=== PATIENT | female | born 2000 | race Caucasian/White ===

== ENCOUNTER 2021-04-02 13:25 | Inpatient (IN) ==
[2021-04-02 14:25] LABS: Appearance Urine Clear (Clear); Bilirubin Urine Negative (Negative); Blood Urine Negative (Negative); Color Urine Yellow; Glucose Urine UA Negative (Negative); Ketones Urine 1+ (Negative); Leukocyte Esterase Urine Negative (Negative); Nitrite Urine Negative (Negative); Protein Urine Negative (Negative); Specific Gravity Urine 1.023 (1.000-1.030); Urobilinogen Urine Negative (Negative); pH Urine 5.5 (4.5-7.5)
[2021-04-02 14:29] LABS: Amphetamines+Metham, Urine Neg (Neg); Barbiturates, Urine Neg (Neg); Benzodiazepine, Urine Neg (Neg); Cocaine, Urine Neg (Neg); MDMA (Ecstacy), Urine Pos (Neg); Methadone, Urine Neg (Neg); Opiate, Urine Neg (Neg); Phencyclidine, Urine Neg (Neg)
[2021-04-02 14:35] LABS: Basophils # (auto) 0.02 K/uL (0-0.2); Basophils % (auto) 0.3 %; Eosinophils # (auto) 0.16 K/uL (0-0.5); Eosinophils % (auto) 2.3 %; Hemoglobin 15.2 g/dL (12.0-16.0); Immature Granulocytes # (auto) 0.01 K/uL (0.00-0.02); Immature Granulocytes % (auto) 0.1 %; Lymphocytes # (auto) 1.43 K/uL (1.2-3.4); Lymphocytes % (auto) 20.1 %; Mean Corpuscular Hemoglobin 31.4 pg (25-34); Mean Corpuscular Hgb Conc 35.3 g/dL (32-36); Mean Corpuscular Volume 88.8 fL (80-100); Mean Platelet Volume 8.2 fL (7.4-10.4); Monocytes % (auto) 8.4 %; Neutrophils # (auto) 4.89 K/uL (1.4-6.5); Neutrophils % (auto) 68.8 %; Platelet Count 306 K/uL (130-400); RDW Coefficient of Variation 11.9 % (11.5-14.5); RDW Standard Deviation 38.5 fL (36.4-46.3); Red Blood Count 4.84 M/uL (4.2-5.4); White Blood Count 7.11 K/uL (4.8-10.8)
[2021-04-02 14:54] LABS: Acetaminophen < 2 ug/ml (10-30); BUN Creatinine Ratio 16.2 (10-20); Calcium 9.2 mg/dl (8.5-10.1); Creatinine Clr Calc Pharmacy 158.2 ml/min; Est GFR (African American) 147.4 ml/min; Est GFR (Non-African American) 127.2 ml/min; Potassium 3.9 mmol/L (3.5-5.1); Salicylate < 1.7 mg/dl (2.8-20)
[2021-04-02 15:04] LABS: Albumin Globulin Ratio 1.1 (0.9-2); Bilirubin,Total 0.7 mg/dl (0.2-1); Globulin 3.5 gm/dl (2.5-4.0); Thyroid Stimulating Hormone 0.602 uIu/ml (0.300-4.500); Total Protein 7.5 gm/dl (6.4-8.2)
[2021-04-02 15:29] LABS: Pregnancy Test, Serum Negative (Negative)
--- NOTE | 2021-04-02 16:39 | Emergency Department Note ---
Impression & Plan Mood disorder ED Provider Note NAME: PAPO SALAZAR AGE: 21 SEX: F : 2000 ARRIVES VIA: Walk-In INFORMANT: Patient, mother ED PROVIDER(S): Radames Boucher MD CHIEF COMPLAINT: Suicidal thoughts HPI: This is a 21 rolled female who presents emergency department complaining of suicidal thoughts. The patient has a plan to go to the grocery store and buy razor blades and cut herself. The patient reports she has previously tried to commit suicide. She has not taking anything to help her with her thoughts. She denies anything making the thoughts better or worse. She told her mother about her concerns and her mother brought her to the emergency department. ROS: See above HPI for pertinent positives & negatives. A total of 10 systems reviewed and were otherwise negative. PAST MEDICAL HISTORY: See Below PAST SURGICAL HISTORY: See Below FAMILY HISTORY: See Below SOCIAL HISTORY: See Below HOME MEDICATIONS: See Below ALLERGIES: See Below VITALS: See Below PHYSICAL EXAMINATION: VITAL SIGNS - Vital signs and nursing notes were reviewed. GENERAL - 21-year-old female appearing stated age who is in no acute distress. Communicates well with provider and answers questions appropriately. SKIN - Without rashes. HEAD - NC/AT. EYES - PERRL with EOMI bilaterally. Sclera anicteric. Palpebral conjunctiva pink and moist with no injection noted. EARS - No deformities of external structures noted on gross examination bilaterally. NOSE - Midline and without cyanosis. No epistaxis or purulent drainage noted. Septum midline without deviation or septal hematoma noted. MOUTH/OROPHARYNX - Without perioral cyanosis. Buccal mucosa pink and moist and without leukoplakia. Tongue midline with equal elevation of palate bilaterally. No tonsillar hypertrophy, erythema, or exudates noted. NECK - Neck with FROM. Supple to palpation. No nuchal rigidity. LUNGS - Chest wall symmetric without accessory muscle use, intercostals retractions, or central cyanosis. Normal vesicular breath sounds CTA B/L. No wheezes, rales, or rhonchi appreciated. CARDIAC - RRR with S1/S2. No murmur, rubs, or gallops appreciated. ABDOMEN - Abdominal contour without pulsations or visible masses. BS normoactive all four quadrants. No tenderness, palpable masses, hepatosplenomegaly, or ascites noted. EXTREMITIES - No clubbing or peripheral cyanosis. No pretibial edema present. +3/5 radial, posterior tibial, and dorsalis pedis pulses palpated throughout. +5/5 strength noted in UE/LE bilaterally. NEUROLOGIC - Cranial nerves II through XII grossly intact. Sensory intact to light touch throughout. Patellar reflexes +2/4. PSYCH - A&Ox3 and cooperates fully with examiner. Pt is very pleasant and interacts well with examiner. MEDICAL DECISION MAKING: Patient was seen and evaluated as above in room A6. Review was performed of nursing notes and vital signs. I did review pertinent previous visits and patient history. After obtaining a thorough history and physical examination the above work up was performed. This is a 21-year-old female who presents emergency department with a plan to kill herself. I did discuss the case with psychiatric case management. Patient was medically cleared by me. The patient is not does not have an elevation in her white blood cell count. She was independently evaluated by psychiatric case management as well as 3 S. and was subsequently admitted. The patient was evaluated during a period of high volume and high acuity during the global COVID-19 pandemic, and that diagnosis was suspected/considered upon their initial presentation. Their evaluation, treatment and testing was consistent with current guidelines for patients who present with complaints or symptoms that may be related to COVID-19. Patient was seen while provider was wearing PPE. Triage Nursing notes reviewed. Prior medical records reviewed Vital Signs: reviewed and remarkable for no significant abnormalities Differential diagnosis: Mood disorder, infection, hypoglycemia, electrolyte abnormalities, cardiac sources, intracerebral event, toxicologic, trauma, neurologic, as well as other pathologies. ER treatment provided: See below Laboratory studies: As stated above and show below. Consultation(s): Psych case management Past Med/Surg History Medical History (Updated 04/02/21 @ 19:51 by Radames Boucher MD) Anxiety Depression Family History Other No pertinent family history in first degree relatives Social History Smoking Status: Never smoker Tobacco Type: E-cigarettes / Vaping Feels Safe at Home: Yes Allergies Allergies Allergy/AdvReac Type Severity Reaction Status Date / Time sulfamethoxazole Allergy Unknown Unverified 06/25/19 11:49 [From Bactrim] trimethoprim [From Bactrim] Allergy Unknown Unverified 06/25/19 11:49 Home Meds Home Medications Medication Instructions Recorded Confirmed bupropion HCl [Wellbutrin SR] 200 mg PO QAM 06/25/19 04/02/21 escitalopram oxalate [Lexapro] 15 mg PO QAM 06/25/19 04/02/21 Results & Data (ED) Vital Signs Vital Signs - 24 hr 04/02/21 13:53 04/02/21 17:15 Temperature 36.7 C Temperature Source Oral Pulse Rate 86 Pulse Rate [Finger] 80 Respiratory Rate 18 16 Respiratory Effort / Characteristics Non-Labored Spontaneous Respiratory Depth Normal Respiratory Pattern Regular Blood Pressure 133/90 Blood Pressure [Right Arm] 132/79 Blood Pressure Mean 104 Blood Pressure Mean [Right Arm] 96 Blood Pressure Position [Right Arm] Sitting Pulse Oximetry 98 96 Oxygen Delivery Method Room Air Room Air Sepsis Recent Fever Within 48 Hours No Sepsis New/Unexplained Change in Mental Status No Sepsis Action Taken by Nursing No Action Required Laboratory Data Result diagrams: 04/02/21 14:12 04/02/21 14:12 Lab Results 04/02/21 04/02/21 04/02/21 Range/Units 14:00 14:00 14:12 WBC (4.8-10.8) K/uL RBC (4.2-5.4) M/uL Hgb (12.0-16.0) g/dL Hct (37-47) % MCV (80-100) fL MCH (25-34) pg MCHC (32-36) g/dL RDW Std Deviation (36.4-46.3) fL RDW Coeff of Anna (11.5-14.5) % Plt Count (130-400) K/uL MPV (7.4-10.4) fL Immature Gran % (Auto) % Neut % (Auto) % Lymph % (Auto) % [place] % (Auto) % Eos % (Auto) % Baso % (Auto) % Neut # (Auto) (1.4-6.5) K/uL Lymph # (Auto) (1.2-3.4) K/uL [place] # (Auto) (0.11-0.59) K/uL Eos # (Auto) (0-0.5) K/uL Baso # (Auto) (0-0.2) K/uL Immature Gran # (Auto) (0.00-0.02) K/uL Sodium (136-145) mmol/L Potassium (3.5-5.1) mmol/L Chloride (98-107) mmol/L Carbon Dioxide (21-32) mmol/L Anion Gap (3-11) BUN (7-18) mg/dl Creatinine (0.6-1.2) mg/dl Est Cr Clr Drug Dosing ml/min Est GFR ( Amer) ml/min Est GFR (Non-Af Amer) ml/min BUN/Creatinine Ratio (10-20) Glucose (70-99) mg/dl Calcium (8.5-10.1) mg/dl Total Bilirubin (0.2-1) mg/dl AST (15-37) U/L ALT (12-78) U/L Alkaline Phosphatase (45-117) U/L Total Protein (6.4-8.2) gm/dl Albumin (3.4-5.0) gm/dl Globulin (2.5-4.0) gm/dl Albumin/Globulin Ratio (0.9-2) TSH (0.300-4.500) uIu/ml HCG, Qual Negative (Negative) Urine Color Yellow Urine Appearance Clear (Clear) Urine pH 5.5 (4.5-7.5) Ur Specific [place] 1.023 (1.000-1.030) Urine Protein Negative (Negative) Urine Glucose (UA) Negative (Negative) Urine Ketones 1+ H (Negative) Urine Blood Negative (Negative) Urine Nitrite Negative (Negative) Urine Bilirubin Negative (Negative) Urine Urobilinogen Negative (Negative) Ur Leukocyte Esterase Negative (Negative) Salicylates (2.8-20) mg/dl Urine Opiates Screen Neg (Neg) Ur Methadone, Qual Neg (Neg) Acetaminophen (10-30) ug/ml Urine Barbiturates Neg (Neg) Ur Phencyclidine (PCP) Neg (Neg) U Amphetamin/Meth Scrn Neg (Neg) MDMA (Ecstasy) Screen Pos H (Neg) U Benzodiazepines Scrn Neg (Neg) Ur Cocaine Metabolite Neg (Neg) U Marijuana (THC) Screen Pos H (Neg) Ethyl Alcohol mg/dL (0-3) mg/dl COVID-19 Eval Order SARS-CoV-2 (PCR) (Negative) 04/02/21 04/02/21 04/02/21 Range/Units 14:12 14:12 14:12 WBC 7.11 (4.8-10.8) K/uL RBC 4.84 (4.2-5.4) M/uL Hgb 15.2 (12.0-16.0) g/dL Hct 43.0 (37-47) % MCV 88.8 (80-100) fL MCH 31.4 (25-34) pg MCHC 35.3 (32-36) g/dL RDW Std Deviation 38.5 (36.4-46.3) fL RDW Coeff of Anna 11.9 (11.5-14.5) % Plt Count 306 (130-400) K/uL MPV 8.2 (7.4-10.4) fL Immature Gran % (Auto) 0.1 % Neut % (Auto) 68.8 % Lymph % (Auto) 20.1 % Briscoe % (Auto) 8.4 % Eos % (Auto) 2.3 % Baso % (Auto) 0.3 % Neut # (Auto) 4.89 (1.4-6.5) K/uL Lymph # (Auto) 1.43 (1.2-3.4) K/uL [place]isco[place] # (Auto) 0.60 H (0.11-0.59) K/uL Eos # (Auto) 0.16 (0-0.5) K/uL Baso # (Auto) 0.02 (0-0.2) K/uL Immature Gran # (Auto) 0.01 (0.00-0.02) K/uL Sodium 138 (136-145) mmol/L Potassium 3.9 (3.5-5.1) mmol/L Chloride 106 (98-107) mmol/L Carbon Dioxide 29 (21-32) mmol/L Anion Gap 3.0 (3-11) BUN 11 (7-18) mg/dl Creatinine 0.66 (0.6-1.2) mg/dl Est Cr Clr Drug Dosing 158.2 ml/min Est GFR ( Amer) 147.4 ml/min Est GFR (Non-Af Amer) 127.2 ml/min BUN/Creatinine Ratio 16.2 (10-20) Glucose 94 (70-99) mg/dl Calcium 9.2 (8.5-10.1) mg/dl Total Bilirubin 0.7 (0.2-1) mg/dl AST 10 L (15-37) U/L ALT 19 (12-78) U/L Alkaline Phosphatase 77 (45-117) U/L Total Protein 7.5 (6.4-8.2) gm/dl Albumin 4.0 (3.4-5.0) gm/dl Globulin 3.5 (2.5-4.0) gm/dl Albumin/Globulin Ratio 1.1 (0.9-2) TSH 0.602 (0.300-4.500) uIu/ml HCG, Qual (Negative) Urine Color Urine Appearance (Clear) Urine pH (4.5-7.5) Ur Specific [place] (1.000-1.030) Urine Protein (Negative) Urine Glucose (UA) (Negative) Urine Ketones (Negative) Urine Blood (Negative) Urine Nitrite (Negative) Urine Bilirubin (Negative) Urine Urobilinogen (Negative) Ur Leukocyte Esterase (Negative) Salicylates < 1.7 L (2.8-20) mg/dl Urine Opiates Screen (Neg) Ur Methadone, Qual (Neg) Acetaminophen < 2 L (10-30) ug/ml Urine Barbiturates (Neg) Ur Phencyclidine (PCP) (Neg) U Amphetamin/Meth Scrn (Neg) MDMA (Ecstasy) Screen (Neg) U Benzodiazepines Scrn (Neg) Ur Cocaine Metabolite (Neg) U Marijuana (THC) Screen (Neg) Ethyl Alcohol mg/dL (0-3) mg/dl COVID-19 Eval Order SARS-CoV-2 (PCR) (Negative) 04/02/21 04/02/21 04/02/21 Range/Units 14:12 16:11 16:11 WBC (4.8-10.8) K/uL RBC (4.2-5.4) M/uL Hgb (12.0-16.0) g/dL Hct (37-47) % MCV (80-100) fL MCH (25-34) pg MCHC (32-36) g/dL RDW Std Deviation (36.4-46.3) fL RDW Coeff of Anna (11.5-14.5) % Plt Count (130-400) K/uL MPV (7.4-10.4) fL Immature Gran % (Auto) % Neut % (Auto) % Lymph % (Auto) % [place] % (Auto) % Eos % (Auto) % Baso % (Auto) % Neut # (Auto) (1.4-6.5) K/uL Lymph # (Auto) (1.2-3.4) K/uL [place] # (Auto) (0.11-0.59) K/uL Eos # (Auto) (0-0.5) K/uL Baso # (Auto) (0-0.2) K/uL Immature Gran # (Auto) (0.00-0.02) K/uL Sodium (136-145) mmol/L Potassium (3.5-5.1) mmol/L Chloride (98-107) mmol/L Carbon Dioxide (21-32) mmol/L Anion Gap (3-11) BUN (7-18) mg/dl Creatinine (0.6-1.2) mg/dl Est Cr Clr Drug Dosing ml/min Est GFR ( Amer) ml/min Est GFR (Non-Af Amer) ml/min BUN/Creatinine Ratio (10-20) Glucose (70-99) mg/dl Calcium (8.5-10.1) mg/dl Total Bilirubin (0.2-1) mg/dl AST (15-37) U/L ALT (12-78) U/L Alkaline Phosphatase (45-117) U/L Total Protein (6.4-8.2) gm/dl Albumin (3.4-5.0) gm/dl Globulin (2.5-4.0) gm/dl Albumin/Globulin Ratio (0.9-2) TSH (0.300-4.500) uIu/ml HCG, Qual (Negative) Urine Color Urine Appearance (Clear) Urine pH (4.5-7.5) Ur Specific [place] (1.000-1.030) Urine Protein (Negative) Urine Glucose (UA) (Negative) Urine Ketones (Negative) Urine Blood (Negative) Urine Nitrite (Negative) Urine Bilirubin (Negative) Urine Urobilinogen (Negative) Ur Leukocyte Esterase (Negative) Salicylates (2.8-20) mg/dl Urine Opiates Screen (Neg) Ur Methadone, Qual (Neg) Acetaminophen (10-30) ug/ml Urine Barbiturates (Neg) Ur Phencyclidine (PCP) (Neg) U Amphetamin/Meth Scrn (Neg) MDMA (Ecstasy) Screen (Neg) U Benzodiazepines Scrn (Neg) Ur Cocaine Metabolite (Neg) U Marijuana (THC) Screen (Neg) Ethyl Alcohol mg/dL < 3.0 (0-3) mg/dl COVID-19 Eval Order Covid19 at [facility] SARS-CoV-2 (PCR) NEGATIVE (Negative) Administered Medications Hydroxyzine HCl (Hydroxyzine Hcl 25 Mg Tab) 25 mg PO Q4H PRN PRN Reason: Anxiety Stop: 05/02/21 19:01 Last Admin: 04/02/21 19:40 Dose: 25 mg Documented by: [id number] Discharge Plan Visit Data Chief Complaint: Mental Health Evaluation Stated Complaint: MENTAL HEALTH EVAL ED Provider: Radames Boucher Discharge Problem: Mood disorder Discharge Instructions Interventions: ED Discharge Assessment Last Done: 04/02/21 19:17
[2021-04-02] MEDS ORDERED: ALUMINUM/MAGNESIUM SUSP 30 ML UDC PO PRN (19:02)
[2021-04-02] MEDS ORDERED: SODIUM CHLORIDE 0.65% NA SOLN 45 ML (OCEAN) PRN (19:02)
[2021-04-02] MEDS ORDERED: ACETAMINOPHEN 325 MG TAB PO PRN (19:02)
[2021-04-02] MEDS ORDERED: MAGNESIUM HYDROXIDE SUSP 30 ML UDC PO PRN (19:02)
[2021-04-02] MEDS ORDERED: BISMUTH SUBSALICYLATE LIQD 236 ML PO PRN (19:02)
[2021-04-02] MEDS: hydrOXYzine HCl 25 MG TAB PO PRN (19:40)
[2021-04-02] MEDS: traZODone HCL 100 MG TAB PO SCH (22:11)
[2021-04-03] MEDS ORDERED: ESCITALOPRAM OXALATE 10 MG TAB PO SCH (09:00)
[2021-04-03] MEDS: buPROPion SR 100 MG TABCR PO SCH (12:59)
[2021-04-03] MEDS: PANTOprazole 40 MG TAB PO SCH (12:59)
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
[2021-04-03] MEDS: traZODone HCL 100 MG TAB PO SCH (21:30)
[2021-04-04] MEDS: ESCITALOPRAM OXALATE 20 MG TAB PO SCH (09:59)
[2021-04-04] MEDS: buPROPion SR 100 MG TABCR PO SCH (09:59)
[2021-04-04] MEDS: PANTOprazole 40 MG TAB PO SCH (10:00)
--- NOTE | 2021-04-04 14:41 | Psychiatric Progress Note ---
Date of Service April 04, 2021 Impression / Recommendations Impression Patient is a 21-year-old female who is presenting following suicidal ideation with plan. Patient has a history of depression and treatment with medications. Although she was compliant with her medications, she was still suffering from her symptoms. She will benefit from inpatient hospitalization for purposes of safety, stabilization, medication management. (1) Mood disorder: The patient was admitted to the [facility] ([facility] mental health unit) on every 15 minute checks (behavioral with suicide precautions for safety. The patient will participate in group, recreational, and milieu therapies and will be offered additional individual and family sessions as clinically appropriate. 04/04/2021atient is making incremental progress. No changes to the regimen as of now. 04/03/2021iagnosis is likely MDD, will plan to increase Lexapro to 20 mg p.o. every morning, continue trazodone 100 mg p.o. nightly, continue Wellbutrin 200 mg p.o. every morning, Risk Factors Assessment Male: No : No Do You Have Access To A Gun?: No Health Problems: No Mental Health Diagnoses: Yes Substance Use Disorders: No Previous Attempt: Yes Previous Attempt; Didn't Tell Anyone: Yes Family History of Suicide: No Previous Psychiatric Hospitalization: No Hopelessness: Yes Smoker: Yes Protective Factors Assessment : No Responsible for Young Children: No Employed: No Stable Relationships: Yes Supportive Family: Yes Good Rapport with Provider: Yes Interval History Chief Complaint "I am okay, thank you". Review of Systems Sleep Information Total Hours of Sleep: 7.25 Meal Information Percent Meal Consumed - Breakfast: 0 Percent Meal Consumed - Lunch: 25 Percent Meal Consumed - Dinner: 100 Nutrition Comment: nausea/vomiting and poor appetite Subjective Subjective Patient was seen & assessed and interval progress reviewed with treatment team nursing and social work. Patient is calm and cooperative upon evaluation. She denies any adverse effects of the increased dosage of medication. She reports a good night of sleep as well as eating her meals without issue. She was able to open up in group and stated that she related to the social workers I appreciated their insight and help. Patient is in good behavioral control and is interacting appropriately with peers. I spent 30 minutes with the patient, 50% of which was dedicated to counselling and coordination of care. Physical Exam Psychiatric Orientation: alert and oriented x 3 Apperance: appropriately groomed Eye Contact: + fair eye contact Motor Behavior: no abnormal motor movements Speech: normal rate/rhythm/volume of speech Affect: + depressed affect and + tearful affect Mood: + depressed mood and + dysphoric mood Thought Process: linear/logical thought process Thought Content: reality based without delusions Suicidal Thoughts: + reports suicidal thoughts Homicidal Thoughts: denies homicidal thoughts Hallucinations: no auditory hallucinations and no gustatory hallucinations Cognition: remote memory grossly intact Estimated Intelligence: consistent with education level Insight: + fair insight Judgement: + poor judgement Vital Signs (Past 24 Hours) Last Vital Signs Temp 36.6 C 04/04/21 07:11 Pulse 95 H 04/04/21 07:11 Resp 16 04/03/21 07:15 BP 98/63 L 04/04/21 07:11 Pulse Ox 100 04/02/21 21:46 Results & Data ([facility]) Current Inpatient Medications Current Inpatient Medications: Current Inpatient Medications Acetaminophen (Acetaminophen 325 Mg Tab) 650 mg PO Q4H PRN PRN Reason: Headache or Minor Fever Stop: 05/02/21 19:01 Al Hydrox/Mg Hydrox/Simethicone (Aluminum/Magnesium Susp 30 Ml Udc) 30 ml PO Q4H PRN PRN Reason: GI Upset Stop: 05/02/21 19:01 Bismuth Subsalicylate (Bismuth Subsalicylate Liqd 236 Ml) 15 ml PO PRN PRN PRN Reason: Loose Stool Stop: 05/02/21 19:01 Bupropion HCl (Bupropion Sr 100 Mg Tabcr) 200 mg PO QAM JAYESH Stop: 05/03/21 08:59 Last Admin: 04/04/21 09:59 Dose: 200 mg Documented by: Escitalopram Oxalate (Escitalopram Oxalate 20 Mg Tab) 20 mg PO QAM JAYESH Stop: 05/04/21 08:59 Last Admin: 04/04/21 09:59 Dose: 20 mg Documented by: Hydroxyzine HCl (Hydroxyzine Hcl 25 Mg Tab) 50 mg PO HSZ PRN PRN Reason: Insomnia Stop: 05/02/21 19:01 Hydroxyzine HCl (Hydroxyzine Hcl 25 Mg Tab) 25 mg PO Q4H PRN PRN Reason: Anxiety Stop: 05/02/21 19:01 Last Admin: 04/02/21 19:40 Dose: 25 mg Documented by: Magnesium Hydroxide (Magnesium Hydroxide Susp 30 Ml Udc) 30 ml PO DAILY PRN PRN Reason: Constipation Stop: 05/02/21 19:01 Pantoprazole Sodium (Pantoprazole 40 Mg Tab) 40 mg PO QAM JAYESH Stop: 05/03/21 08:59 Last Admin: 04/04/21 10:00 Dose: 40 mg Documented by: Sodium Chloride (Sodium Chloride 0.65% Na Soln 45 Ml ([place])) 1 - 2 sprays NA PRN PRN PRN Reason: Nasal Dryness/Congestion Stop: 05/02/21 19:01 Trazodone HCl (Trazodone Hcl 100 Mg Tab) 100 mg PO HS JAYESH Stop: 05/02/21 21:59 Last Admin: 04/03/21 21:30 Dose: 100 mg Documented by: Mental Health & Subst Abuse Tx Therapist Name of Therapist: None Plastic Parts Fabricator Name of Plastic Parts Fabricator: None Post Discharge Appointments Primary Care Physician Name Of Family Doctor: Syeda Wilder Contact Information Discharge Discharge Address: [address] [place] [address],[place] [address]
[2021-04-04] MEDS: hydrOXYzine HCl 25 MG TAB PO PRN ×2 (15:58→22:01)
[2021-04-04] MEDS: traZODone HCL 100 MG TAB PO SCH (22:01)
[2021-04-05] MEDS: ESCITALOPRAM OXALATE 20 MG TAB PO SCH (09:53)
[2021-04-05] MEDS: buPROPion SR 100 MG TABCR PO SCH (09:53)
[2021-04-05] MEDS: PANTOprazole 40 MG TAB PO SCH (09:53)
--- NOTE | 2021-04-05 09:58 | Psychiatric Progress Note ---
Date of Service April 05, 2021 Impression / Recommendations Impression Patient is a 21-year-old female who is presenting following suicidal ideation with plan. Patient has a history of depression and treatment with medications. Although she was compliant with her medications, she was still suffering from her symptoms. She will benefit from inpatient hospitalization for purposes of safety, stabilization, medication management. (1) Mood disorder: The patient was admitted to the [facility] ([facility] unit) on every 15 minute checks (behavioral with suicide precautions for safety. The patient will participate in group, recreational, and milieu therapies and will be offered additional individual and family sessions as clinically appropriate. 04/05/2021atient continues to do well on the unit. Seems to be improving her mood. 04/04/2021atient is making incremental progress. No changes to the regimen as of now. 04/03/2021iagnosis is likely MDD, will plan to increase Lexapro to 20 mg p.o. every morning, continue trazodone 100 mg p.o. nightly, continue Wellbutrin 200 mg p.o. every morning, Risk Factors Assessment Male: No : No Do You Have Access To A Gun?: No Health Problems: No Mental Health Diagnoses: Yes Substance Use Disorders: No Previous Attempt: Yes Previous Attempt; Didn't Tell Anyone: Yes Family History of Suicide: No Previous Psychiatric Hospitalization: No Hopelessness: Yes Smoker: Yes Protective Factors Assessment : No Responsible for Young Children: No Employed: No Stable Relationships: Yes Supportive Family: Yes Good Rapport with Provider: Yes Interval History Chief Complaint "Good morning". Review of Systems Sleep Information Total Hours of Sleep: 6 Meal Information Percent Meal Consumed - Breakfast: 0 Percent Meal Consumed - Lunch: 25 Percent Meal Consumed - Dinner: 100 Nutrition Comment: nausea/vomiting and poor appetite Subjective Subjective Patient was seen & assessed and interval progress reviewed with treatment team nursing and social work Patient reports a decent night sleep without issue. She is eating meals okay although does continue to have poor appetite. She denies any side effects the medication. She reports starting to feel improvement of her mood and enjoying the groups. Interacting well with others. I spent 30 minutes with the patient, 50% of which was dedicated to counselling and coordination of care. Physical Exam Psychiatric Orientation: alert and oriented x 3 Apperance: appropriately groomed Eye Contact: + fair eye contact Motor Behavior: no abnormal motor movements Speech: normal rate/rhythm/volume of speech Affect: + depressed affect and + tearful affect Mood: + depressed mood and + dysphoric mood Thought Process: linear/logical thought process Thought Content: reality based without delusions Suicidal Thoughts: + reports suicidal thoughts Homicidal Thoughts: denies homicidal thoughts Hallucinations: no auditory hallucinations and no gustatory hallucinations Cognition: remote memory grossly intact Estimated Intelligence: consistent with education level Insight: + fair insight Judgement: + poor judgement Vital Signs (Past 24 Hours) Last Vital Signs Temp 36.6 C 04/05/21 06:44 Pulse 71 04/05/21 06:44 Resp 16 04/05/21 06:44 BP 92/52 L 04/05/21 06:44 Pulse Ox 100 04/02/21 21:46 Results & Data ([facility]) Current Inpatient Medications Current Inpatient Medications: Current Inpatient Medications Acetaminophen (Acetaminophen 325 Mg Tab) 650 mg PO Q4H PRN PRN Reason: Headache or Minor Fever Stop: 05/02/21 19:01 Al Hydrox/Mg Hydrox/Simethicone (Aluminum/Magnesium Susp 30 Ml Udc) 30 ml PO Q4H PRN PRN Reason: GI Upset Stop: 05/02/21 19:01 Bismuth Subsalicylate (Bismuth Subsalicylate Liqd 236 Ml) 15 ml PO PRN PRN PRN Reason: Loose Stool Stop: 05/02/21 19:01 Bupropion HCl (Bupropion Sr 100 Mg Tabcr) 200 mg PO QAM JAYESH Stop: 05/03/21 08:59 Last Admin: 04/05/21 09:53 Dose: 200 mg Documented by: Escitalopram Oxalate (Escitalopram Oxalate 20 Mg Tab) 20 mg PO QAM JAYESH Stop: 05/04/21 08:59 Last Admin: 04/05/21 09:53 Dose: 20 mg Documented by: Hydroxyzine HCl (Hydroxyzine Hcl 25 Mg Tab) 50 mg PO HSZ PRN PRN Reason: Insomnia Stop: 05/02/21 19:01 Hydroxyzine HCl (Hydroxyzine Hcl 25 Mg Tab) 25 mg PO Q4H PRN PRN Reason: Anxiety Stop: 05/02/21 19:01 Last Admin: 04/04/21 22:01 Dose: 25 mg Documented by: Magnesium Hydroxide (Magnesium Hydroxide Susp 30 Ml Udc) 30 ml PO DAILY PRN PRN Reason: Constipation Stop: 05/02/21 19:01 Pantoprazole Sodium (Pantoprazole 40 Mg Tab) 40 mg PO QAM JAYESH Stop: 05/03/21 08:59 Last Admin: 04/05/21 09:53 Dose: 40 mg Documented by: Sodium Chloride (Sodium Chloride 0.65% Na Soln 45 Ml ([place])) 1 - 2 sprays NA PRN PRN PRN Reason: Nasal Dryness/Congestion Stop: 05/02/21 19:01 Trazodone HCl (Trazodone Hcl 100 Mg Tab) 100 mg PO HS JAYESH Stop: 05/02/21 21:59 Last Admin: 04/04/21 22:01 Dose: 100 mg Documented by: Mental Health & Subst Abuse Tx Psychiatrist Name of Psychiatrist: Shar Guzman Psychiatrist's Date of Appointment with Psychiatrist: 04/14/21 Time of Appointment with Psychiatrist: 2:00 pm Psychiatric Appointment Comment: Behzad barton Therapist Name of Therapist: None Newspaper Reporter Name of Newspaper Reporter: [employer] [facility] [employer] [facility] Phone Number for Newspaper Reporter: [phone] Post Discharge Appointments Primary Care Physician Name Of Family Doctor: Syeda Wilder Contact Information Discharge Discharge Address: [address] [place] [address],[place] [address]
[2021-04-05] MEDS: traZODone HCL 100 MG TAB PO SCH (22:09)
[2021-04-05] MEDS: hydrOXYzine HCl 25 MG TAB PO PRN (22:10)
[2021-04-06] MEDS: buPROPion SR 100 MG TABCR PO SCH (09:06)
[2021-04-06] MEDS: ESCITALOPRAM OXALATE 20 MG TAB PO SCH (09:07)
[2021-04-06] MEDS: PANTOprazole 40 MG TAB PO SCH (09:07)
--- NOTE | 2021-04-06 16:24 | Psychiatric Progress Note ---
Date of Service April 06, 2021 Impression / Recommendations Impression Patient is a 21-year-old female who is presenting following suicidal ideation with plan. Patient has a history of depression and treatment with medications. Although she was compliant with her medications, she was still suffering from her symptoms. She will benefit from inpatient hospitalization for purposes of safety, stabilization, medication management. (1) Mood disorder: The patient was admitted to the [facility] ([facility] mental health unit) on every 15 minute checks (behavioral with suicide precautions for safety. The patient will participate in group, recreational, and milieu therapies and will be offered additional individual and family sessions as clinically appropriate. 04/06/21--patient's mood seems to be improving although today was a difficult day and patient was still endorsing some suicidal thoughts. Patient is interacting appropriate with peers and seems to be benefiting by the unit. 04/05/2021atient continues to do well on the unit. Seems to be improving her mood. 04/04/2021atient is making incremental progress. No changes to the regimen as of now. 04/03/2021iagnosis is likely MDD, will plan to increase Lexapro to 20 mg p.o. every morning, continue trazodone 100 mg p.o. nightly, continue Wellbutrin 200 mg p.o. every morning, Risk Factors Assessment Male: No : No Do You Have Access To A Gun?: No Health Problems: No Mental Health Diagnoses: Yes Substance Use Disorders: No Previous Attempt: Yes Previous Attempt; Didn't Tell Anyone: Yes Family History of Suicide: No Previous Psychiatric Hospitalization: No Hopelessness: Yes Smoker: Yes Protective Factors Assessment : No Responsible for Young Children: No Employed: No Stable Relationships: Yes Supportive Family: Yes Good Rapport with Provider: Yes Interval History Chief Complaint "today was a pretty rough day". Review of Systems Sleep Information Total Hours of Sleep: 6 Meal Information Percent Meal Consumed - Breakfast: 25 Percent Meal Consumed - Lunch: 20 Percent Meal Consumed - Dinner: 50 Nutrition Comment: nausea/vomiting and poor appetite Subjective Subjective Patient was seen & assessed and interval progress reviewed with treatment team nursing and social work Patient reports compliance to medication. She is sleeping better and eating some of her meals. Patient stated that he was a difficult day with regards to her mood. She felt depressed during the day and was having some bad thoughts. Patient continues to require inpatient hospitalization for safety, stabilization, medication management. She is showing some progress but is still not safe to discharge home at this time. I spent 30 minutes with the patient, 50% of which was dedicated to counselling and coordination of care. Physical Exam Psychiatric Orientation: alert and oriented x 3 Apperance: appropriately groomed Eye Contact: + fair eye contact Motor Behavior: no abnormal motor movements Speech: normal rate/rhythm/volume of speech Affect: + depressed affect and + tearful affect Mood: + depressed mood and + dysphoric mood Thought Process: linear/logical thought process Thought Content: reality based without delusions Suicidal Thoughts: + reports suicidal thoughts Homicidal Thoughts: denies homicidal thoughts Hallucinations: no auditory hallucinations and no gustatory hallucinations Cognition: remote memory grossly intact Estimated Intelligence: consistent with education level Insight: + fair insight Judgement: + poor judgement Vital Signs (Past 24 Hours) Last Vital Signs Temp 36.7 C 04/06/21 06:38 Pulse 90 04/06/21 06:39 Resp 18 04/06/21 06:38 BP 94/61 L 04/06/21 06:39 Pulse Ox 100 04/02/21 21:46 Results & Data ([facility]) Current Inpatient Medications Current Inpatient Medications: Current Inpatient Medications Acetaminophen (Acetaminophen 325 Mg Tab) 650 mg PO Q4H PRN PRN Reason: Headache or Minor Fever Stop: 05/02/21 19:01 Al Hydrox/Mg Hydrox/Simethicone (Aluminum/Magnesium Susp 30 Ml Udc) 30 ml PO Q4H PRN PRN Reason: GI Upset Stop: 05/02/21 19:01 Bismuth Subsalicylate (Bismuth Subsalicylate Liqd 236 Ml) 15 ml PO PRN PRN PRN Reason: Loose Stool Stop: 05/02/21 19:01 Bupropion HCl (Bupropion Sr 100 Mg Tabcr) 200 mg PO QAM JAYESH Stop: 05/03/21 08:59 Last Admin: 04/06/21 09:06 Dose: 200 mg Documented by: Escitalopram Oxalate (Escitalopram Oxalate 20 Mg Tab) 20 mg PO QAM JAYESH Stop: 05/04/21 08:59 Last Admin: 04/06/21 09:07 Dose: 20 mg Documented by: Hydroxyzine HCl (Hydroxyzine Hcl 25 Mg Tab) 50 mg PO HSZ PRN PRN Reason: Insomnia Stop: 05/02/21 19:01 Hydroxyzine HCl (Hydroxyzine Hcl 25 Mg Tab) 25 mg PO Q4H PRN PRN Reason: Anxiety Stop: 05/02/21 19:01 Last Admin: 04/05/21 22:10 Dose: 25 mg Documented by: Magnesium Hydroxide (Magnesium Hydroxide Susp 30 Ml Udc) 30 ml PO DAILY PRN PRN Reason: Constipation Stop: 05/02/21 19:01 Pantoprazole Sodium (Pantoprazole 40 Mg Tab) 40 mg PO QAM JAYESH Stop: 05/03/21 08:59 Last Admin: 04/06/21 09:07 Dose: 40 mg Documented by: Sodium Chloride (Sodium Chloride 0.65% Na Soln 45 Ml ([place])) 1 - 2 sprays NA PRN PRN PRN Reason: Nasal Dryness/Congestion Stop: 05/02/21 19:01 Trazodone HCl (Trazodone Hcl 100 Mg Tab) 100 mg PO HS JAYESH Stop: 05/02/21 21:59 Last Admin: 04/05/21 22:09 Dose: 100 mg Documented by: Mental Health & Subst Abuse Tx Psychiatrist Name of Psychiatrist: Genna: Holley Guzman Psychiatrist's Date of Appointment with Psychiatrist: 04/14/21 Time of Appointment with Psychiatrist: 2:00 pm Psychiatric Appointment Comment: Behzad barton Therapist Name of Therapist: Angelina Therapist's Date of Therapist Appointment: 04/12/21 Time of Therapist Appointment: 10:00 AM Therapy Appointment Comment: Behzad barton Changeover Operator Name of Changeover Operator: [facility] Phone Number for Changeover Operator: [phone] Post Discharge Appointments Primary Care Physician Name Of Family Doctor: [facility] Primary Care Provider Appointment Comment: As needed Supervisor [employer] Phone Number of Supervisor Bottle Machines: Supervisor [employer] Appointment Comment: available as a resource Contact Information Discharge Discharge Address: [address] [place] [address],[place] [address]
[2021-04-06] MEDS: traZODone HCL 100 MG TAB PO SCH (21:50)
[2021-04-06] MEDS: hydrOXYzine HCl 25 MG TAB PO PRN (21:52)
[2021-04-07] MEDS: buPROPion SR 100 MG TABCR PO SCH (09:33)
[2021-04-07] MEDS: PANTOprazole 40 MG TAB PO SCH (09:33)
[2021-04-07] MEDS: ESCITALOPRAM OXALATE 20 MG TAB PO SCH (09:33)
[2021-04-07 10:25] LABS: MDA negative; MDEA negative; MDMA (Ecstasy) Urine, Confirm negative; Marijuana Quant, GCMS Urine 4192 ng/mL (<5)
--- NOTE | 2021-04-07 14:30 | Psychiatric Progress Note ---
Date of Service April 07, 2021 Impression / Recommendations Impression Patient is a 21-year-old female who is presenting following suicidal ideation with plan. Patient has a history of depression and treatment with medications. Although she was compliant with her medications, she was still suffering from her symptoms. She will benefit from inpatient hospitalization for purposes of safety, stabilization, medication management. (1) Mood disorder: The patient was admitted to the [facility] ([facility] health unit) on every 15 minute checks (behavioral with suicide precautions for safety. The patient will participate in group, recreational, and milieu therapies and will be offered additional individual and family sessions as clinically appropriate. 04/06/21--patient's mood seems to be improving although today was a difficult day and patient was still endorsing some suicidal thoughts. Patient is interacting appropriate with peers and seems to be benefiting by the unit. 04/05/2021atient continues to do well on the unit. Seems to be improving her mood. 04/04/2021atient is making incremental progress. No changes to the regimen as of now. 04/03/2021iagnosis is likely MDD, will plan to increase Lexapro to 20 mg p.o. every morning, continue trazodone 100 mg p.o. nightly, continue Wellbutrin 200 mg p.o. every morning, Risk Factors Assessment Male: No : No Do You Have Access To A Gun?: No Health Problems: No Mental Health Diagnoses: Yes Substance Use Disorders: No Previous Attempt: Yes Previous Attempt; Didn't Tell Anyone: Yes Family History of Suicide: No Previous Psychiatric Hospitalization: No Hopelessness: Yes Smoker: Yes Protective Factors Assessment : No Responsible for Young Children: No Employed: No Stable Relationships: Yes Supportive Family: Yes Good Rapport with Provider: Yes Interval History Chief Complaint "I am okay the groups are really helping". Review of Systems Sleep Information Total Hours of Sleep: 8 Meal Information Percent Meal Consumed - Breakfast: 50 Percent Meal Consumed - Lunch: 20 Percent Meal Consumed - Dinner: 70 Nutrition Comment: nausea/vomiting and poor appetite Subjective Subjective Patient was seen & assessed and interval progress reviewed with treatment team nursing and social work Per report patient is compliant medications sleeping an estimated 8 hours of sleep per night and eating meals well with strong appetite. Patient states her mood is improving which she attributes to the group therapy as well as the medication. She states that she is having less frequent suicidal thoughts. Agreeable to start discharge planning I spent 30 minutes with the patient, 50% of which was dedicated to counselling and coordination of care. Physical Exam Psychiatric Orientation: alert and oriented x 3 Apperance: appropriately groomed Eye Contact: + fair eye contact Motor Behavior: no abnormal motor movements Speech: normal rate/rhythm/volume of speech Affect: + depressed affect and + tearful affect Mood: + depressed mood and + dysphoric mood Thought Process: linear/logical thought process Thought Content: reality based without delusions Suicidal Thoughts: + reports suicidal thoughts Homicidal Thoughts: denies homicidal thoughts Hallucinations: no auditory hallucinations and no gustatory hallucinations Cognition: remote memory grossly intact Estimated Intelligence: consistent with education level Insight: + fair insight Judgement: + poor judgement Vital Signs (Past 24 Hours) Last Vital Signs Temp 36.6 C 04/07/21 06:35 Pulse 90 04/07/21 06:35 Resp 16 04/07/21 06:35 BP 114/70 04/07/21 06:35 Pulse Ox 100 04/02/21 21:46 Results & Data ([facility]) Laboratory Results Laboratory Results - last 24 hr 04/02/21 14:00 Urine MDEA negative MDMA negative Urine MDMA negative U Marijuana THC Carboxy 4192 H Drug Screen Comment SEE NOTE Current Inpatient Medications Current Inpatient Medications: Current Inpatient Medications Acetaminophen (Acetaminophen 325 Mg Tab) 650 mg PO Q4H PRN PRN Reason: Headache or Minor Fever Stop: 05/02/21 19:01 Al Hydrox/Mg Hydrox/Simethicone (Aluminum/Magnesium Susp 30 Ml Udc) 30 ml PO Q4H PRN PRN Reason: GI Upset Stop: 05/02/21 19:01 Bismuth Subsalicylate (Bismuth Subsalicylate Liqd 236 Ml) 15 ml PO PRN PRN PRN Reason: Loose Stool Stop: 05/02/21 19:01 Bupropion HCl (Bupropion Sr 100 Mg Tabcr) 200 mg PO QAM JAYESH Stop: 05/03/21 08:59 Last Admin: 04/07/21 09:33 Dose: 200 mg Documented by: Escitalopram Oxalate (Escitalopram Oxalate 20 Mg Tab) 20 mg PO QAM JAYESH Stop: 05/04/21 08:59 Last Admin: 04/07/21 09:33 Dose: 20 mg Documented by: Hydroxyzine HCl (Hydroxyzine Hcl 25 Mg Tab) 50 mg PO HSZ PRN PRN Reason: Insomnia Stop: 05/02/21 19:01 Hydroxyzine HCl (Hydroxyzine Hcl 25 Mg Tab) 25 mg PO Q4H PRN PRN Reason: Anxiety Stop: 05/02/21 19:01 Last Admin: 04/06/21 21:52 Dose: 25 mg Documented by: Magnesium Hydroxide (Magnesium Hydroxide Susp 30 Ml Udc) 30 ml PO DAILY PRN PRN Reason: Constipation Stop: 05/02/21 19:01 Pantoprazole Sodium (Pantoprazole 40 Mg Tab) 40 mg PO QAM JAYESH Stop: 05/03/21 08:59 Last Admin: 04/07/21 09:33 Dose: 40 mg Documented by: Sodium Chloride (Sodium Chloride 0.65% Na Soln 45 Ml ([place])) 1 - 2 sprays NA PRN PRN PRN Reason: Nasal Dryness/Congestion Stop: 05/02/21 19:01 Trazodone HCl (Trazodone Hcl 100 Mg Tab) 100 mg PO HS JAYESH Stop: 05/02/21 21:59 Last Admin: 04/06/21 21:50 Dose: 100 mg Documented by: Mental Health & Subst Abuse Tx Psychiatrist Name of Psychiatrist: Genna: Holley Guzman Psychiatrist's Date of Appointment with Psychiatrist: 04/14/21 Time of Appointment with Psychiatrist: 2:00 pm Psychiatric Appointment Comment: Behzad barton Therapist Name of Therapist: None Therapist's Date of Therapist Appointment: 04/12/21 Time of Therapist Appointment: 10:00 AM Therapy Appointment Comment: Behzad barton Merchandise Flow Associate Name of Merchandise Flow Associate: [facility] Phone Number for Merchandise Flow Associate: [phone] Post Discharge Appointments [facility] Appointment Comment: As needed Web Assistant Phone Number of Web Assistant: Web Assistant Appointment Comment: available as a resource Contact Information Discharge Discharge Address: [address] [place] [address],[place] [address]
[2021-04-07] MEDS: traZODone HCL 100 MG TAB PO SCH (21:37)
[2021-04-07] MEDS: hydrOXYzine HCl 25 MG TAB PO PRN (21:41)
[2021-04-08] MEDS: buPROPion SR 100 MG TABCR PO SCH (10:09)
[2021-04-08] MEDS: ESCITALOPRAM OXALATE 20 MG TAB PO SCH (10:10)
[2021-04-08] MEDS: PANTOprazole 40 MG TAB PO SCH (10:10)
--- NOTE | 2021-04-08 15:05 | Psychiatric Progress Note ---
Date of Service April 08, 2021 Impression / Recommendations Impression Patient is a 21-year-old female who is presenting following suicidal ideation with plan. Patient has a history of depression and treatment with medications. Although she was compliant with her medications, she was still suffering from her symptoms. She will benefit from inpatient hospitalization for purposes of safety, stabilization, medication management. (1) Mood disorder: The patient was admitted to the [facility] ([facility] mental health unit) on every 15 minute checks (behavioral with suicide precautions for safety. The patient will participate in group, recreational, and milieu therapies and will be offered additional individual and family sessions as clinically appropriate. 04/08/2021atient reporting mood is improved. Anticipating discharge this w eekend. 04/07/2021atient making incremental progress 04/06/21--patient's mood seems to be improving although today was a difficult day and patient was still endorsing some suicidal thoughts. Patient is interacting appropriate with peers and seems to be benefiting by the unit. 04/05/2021atient continues to do well on the unit. Seems to be improving her mood. 04/04/2021atient is making incremental progress. No changes to the regimen as of now. 04/03/2021iagnosis is likely MDD, will plan to increase Lexapro to 20 mg p.o. every morning, continue trazodone 100 mg p.o. nightly, continue Wellbutrin 200 mg p.o. every morning, Risk Factors Assessment Male: No : No Do You Have Access To A Gun?: No Health Problems: No Mental Health Diagnoses: Yes Substance Use Disorders: No Previous Attempt: Yes Previous Attempt; Didn't Tell Anyone: Yes Family History of Suicide: No Previous Psychiatric Hospitalization: No Hopelessness: Yes Smoker: Yes Protective Factors Assessment : No Responsible for Young Children: No Employed: No Stable Relationships: Yes Supportive Family: Yes Good Rapport with Provider: Yes Interval History Chief Complaint "I am feeling better I think I am ready for discharge". Review of Systems Sleep Information Total Hours of Sleep: 7.5 Meal Information Percent Meal Consumed - Breakfast: 100 Percent Meal Consumed - Lunch: 80 Percent Meal Consumed - Dinner: 100 Nutrition Comment: nausea/vomiting and poor appetite Subjective Subjective Patient was seen & assessed and interval progress reviewed with treatment team nursing and social work Patient reports feeling better. She states that her mood has lifted and she feels more able to reintegrate into the community successfully. She is denying any suicidal ideation at this time. She is eating well and sleeping well. No side effects to medication reported or observed I spent 30 minutes with the patient, 50% of which was dedicated to counselling and coordination of care. Physical Exam Psychiatric Orientation: alert and oriented x 3 Apperance: appropriately groomed Eye Contact: + fair eye contact Motor Behavior: no abnormal motor movements Speech: normal rate/rhythm/volume of speech Affect: + depressed affect and + tearful affect Mood: + depressed mood and + dysphoric mood Thought Process: linear/logical thought process Thought Content: reality based without delusions Suicidal Thoughts: + reports suicidal thoughts Homicidal Thoughts: denies homicidal thoughts Hallucinations: no auditory hallucinations and no gustatory hallucinations Cognition: remote memory grossly intact Estimated Intelligence: consistent with education level Insight: + fair insight Judgement: + poor judgement Vital Signs (Past 24 Hours) Last Vital Signs Temp 36.6 C 04/08/21 06:41 Pulse 86 04/08/21 06:42 Resp 16 04/08/21 06:41 BP 94/54 L 04/08/21 06:42 Pulse Ox 100 04/02/21 21:46 Results & Data ([facility]) Current Inpatient Medications Current Inpatient Medications: Current Inpatient Medications Acetaminophen (Acetaminophen 325 Mg Tab) 650 mg PO Q4H PRN PRN Reason: Headache or Minor Fever Stop: 05/02/21 19:01 Al Hydrox/Mg Hydrox/Simethicone (Aluminum/Magnesium Susp 30 Ml Udc) 30 ml PO Q4H PRN PRN Reason: GI Upset Stop: 05/02/21 19:01 Bismuth Subsalicylate (Bismuth Subsalicylate Liqd 236 Ml) 15 ml PO PRN PRN PRN Reason: Loose Stool Stop: 05/02/21 19:01 Bupropion HCl (Bupropion Sr 100 Mg Tabcr) 200 mg PO QAM JAYESH Stop: 05/03/21 08:59 Last Admin: 04/08/21 10:09 Dose: 200 mg Documented by: Escitalopram Oxalate (Escitalopram Oxalate 20 Mg Tab) 20 mg PO QAM JAYESH Stop: 05/04/21 08:59 Last Admin: 04/08/21 10:10 Dose: 20 mg Documented by: Hydroxyzine HCl (Hydroxyzine Hcl 25 Mg Tab) 50 mg PO HSZ PRN PRN Reason: Insomnia Stop: 05/02/21 19:01 Last Admin: 04/07/21 21:41 Dose: 50 mg Documented by: Hydroxyzine HCl (Hydroxyzine Hcl 25 Mg Tab) 25 mg PO Q4H PRN PRN Reason: Anxiety Stop: 05/02/21 19:01 Last Admin: 04/06/21 21:52 Dose: 25 mg Documented by: Magnesium Hydroxide (Magnesium Hydroxide Susp 30 Ml Udc) 30 ml PO DAILY PRN PRN Reason: Constipation Stop: 05/02/21 19:01 Pantoprazole Sodium (Pantoprazole 40 Mg Tab) 40 mg PO QAM JAYESH Stop: 05/03/21 08:59 Last Admin: 04/08/21 10:10 Dose: 40 mg Documented by: Sodium Chloride (Sodium Chloride 0.65% Na Soln 45 Ml ([place])) 1 - 2 sprays NA PRN PRN PRN Reason: Nasal Dryness/Congestion Stop: 05/02/21 19:01 Trazodone HCl (Trazodone Hcl 100 Mg Tab) 100 mg PO HS JAYESH Stop: 05/02/21 21:59 Last Admin: 04/07/21 21:37 Dose: 100 mg Documented by: Mental Health & Subst Abuse Tx Psychiatrist Name of Psychiatrist: Shar Guzman Psychiatrist's Date of Appointment with Psychiatrist: 04/14/21 Time of Appointment with Psychiatrist: 2:00 pm Psychiatric Appointment Comment: Behzad barton Therapist Name of Therapist: Shar Adams Therapist's Date of Therapist Appointment: 04/12/21 Time of Therapist Appointment: 10:00 AM Therapy Appointment Comment: Behzad barton Insurance Loss Control Surveyor Name of Insurance Loss Control Surveyor: [employer] Phone Number for Insurance Loss Control Surveyor: [phone] Post Discharge Appointments Primary Care Physician Name Of Family Doctor: [facility] Primary Care Provider Appointment Comment: As needed Managing Member Phone Number of Managing Member: Managing Member Appointment Comment: available as a resource Contact Information Discharge Discharge Address: [address] [place] [address] Rd,[place] [address]
[2021-04-08] MEDS: hydrOXYzine HCl 25 MG TAB PO PRN ×2 (15:42→21:28)
[2021-04-08] MEDS: traZODone HCL 100 MG TAB PO SCH (21:28)
[2021-04-09] MEDS: buPROPion SR 100 MG TABCR PO SCH (10:29)
[2021-04-09] MEDS: ESCITALOPRAM OXALATE 20 MG TAB PO SCH (10:29)
[2021-04-09] MEDS: PANTOprazole 40 MG TAB PO SCH (10:29)
--- NOTE | 2021-04-09 12:05 | Psychiatric Progress Note ---
Date of Service April 09, 2021 Impression / Recommendations Impression Patient is a 21-year-old female who is presenting following suicidal ideation with plan. Patient has a history of depression and treatment with medications. Although she was compliant with her medications, she was still suffering from her symptoms. She will benefit from inpatient hospitalization for purposes of safety, stabilization, medication management. (1) Mood disorder: The patient was admitted to the [facility] ([facility] mental health unit) on every 15 minute checks (behavioral with suicide precautions for safety. The patient will participate in group, recreational, and milieu therapies and will be offered additional individual and family sessions as clinically appropriate. 04/09/2021ischarge hold as patient reported a panic attack and crying spells last night. Mood still seems labile, will continue with therapy for now and reassess discharge in several days time. 04/08/2021atient reporting mood is improved. Anticipating discharge this wee kend. 04/07/2021atient making incremental progress 04/06/21--patient's mood seems to be improving although today was a difficult day and patient was still endorsing some suicidal thoughts. Patient is interacting appropriate with peers and seems to be benefiting by the unit. 04/05/2021atient continues to do well on the unit. Seems to be improving her mood. 04/04/2021atient is making incremental progress. No changes to the regimen as of now. 04/03/2021iagnosis is likely MDD, will plan to increase Lexapro to 20 mg p.o. every morning, continue trazodone 100 mg p.o. nightly, continue Wellbutrin 200 mg p.o. every morning, Risk Factors Assessment Male: No : No Do You Have Access To A Gun?: No Health Problems: No Mental Health Diagnoses: Yes Substance Use Disorders: No Previous Attempt: Yes Previous Attempt; Didn't Tell Anyone: Yes Family History of Suicide: No Previous Psychiatric Hospitalization: No Hopelessness: Yes Smoker: Yes Protective Factors Assessment : No Responsible for Young Children: No Employed: No Stable Relationships: Yes Supportive Family: Yes Good Rapport with Provider: Yes Interval History Chief Complaint "I had a bad night". Review of Systems Sleep Information Total Hours of Sleep: 6.5 Meal Information Percent Meal Consumed - Breakfast: 0 Percent Meal Consumed - Lunch: 80 Percent Meal Consumed - Dinner: 75 Nutrition Comment: nausea/vomiting and poor appetite Subjective Subjective Patient was seen & assessed and interval progress reviewed with treatment team nursing and social work Patient endorsed rough night last night with panic and crying spells. States that this was in response to some bad news she had learned from her girlfriend. Mood still seems somewhat labile. We will hold off on discharge for now and reassess and a day or so. She is eating some meals and sleeping well. I spent 30 minutes with the patient, 50% of which was dedicated to counselling and coordination of care. Physical Exam Psychiatric Orientation: alert and oriented x 3 Apperance: appropriately groomed Eye Contact: + fair eye contact Motor Behavior: no abnormal motor movements Speech: normal rate/rhythm/volume of speech Affect: + depressed affect and + tearful affect Mood: + depressed mood and + dysphoric mood Thought Process: linear/logical thought process Thought Content: reality based without delusions Suicidal Thoughts: + reports suicidal thoughts Homicidal Thoughts: denies homicidal thoughts Hallucinations: no auditory hallucinations and no gustatory hallucinations Cognition: remote memory grossly intact Estimated Intelligence: consistent with education level Insight: + fair insight Judgement: + poor judgement Vital Signs (Past 24 Hours) Last Vital Signs Temp 36.6 C 04/09/21 06:41 Pulse 82 04/09/21 06:42 Resp 16 04/09/21 06:41 BP 76/50 L 04/09/21 06:42 Pulse Ox 100 04/02/21 21:46 Results & Data ([facility]) Current Inpatient Medications Current Inpatient Medications: Current Inpatient Medications Acetaminophen (Acetaminophen 325 Mg Tab) 650 mg PO Q4H PRN PRN Reason: Headache or Minor Fever Stop: 05/02/21 19:01 Al Hydrox/Mg Hydrox/Simethicone (Aluminum/Magnesium Susp 30 Ml Udc) 30 ml PO Q4H PRN PRN Reason: GI Upset Stop: 05/02/21 19:01 Bismuth Subsalicylate (Bismuth Subsalicylate Liqd 236 Ml) 15 ml PO PRN PRN PRN Reason: Loose Stool Stop: 05/02/21 19:01 Bupropion HCl (Bupropion Sr 100 Mg Tabcr) 200 mg PO QAM JAYESH Stop: 05/03/21 08:59 Last Admin: 04/09/21 10:29 Dose: 200 mg Documented by: Escitalopram Oxalate (Escitalopram Oxalate 20 Mg Tab) 20 mg PO QAM JAYESH Stop: 05/04/21 08:59 Last Admin: 04/09/21 10:29 Dose: 20 mg Documented by: Hydroxyzine HCl (Hydroxyzine Hcl 25 Mg Tab) 50 mg PO HSZ PRN PRN Reason: Insomnia Stop: 05/02/21 19:01 Last Admin: 04/08/21 21:28 Dose: 50 mg Documented by: Hydroxyzine HCl (Hydroxyzine Hcl 25 Mg Tab) 25 mg PO Q4H PRN PRN Reason: Anxiety Stop: 05/02/21 19:01 Last Admin: 04/08/21 15:42 Dose: 25 mg Documented by: Magnesium Hydroxide (Magnesium Hydroxide Susp 30 Ml Udc) 30 ml PO DAILY PRN PRN Reason: Constipation Stop: 05/02/21 19:01 Pantoprazole Sodium (Pantoprazole 40 Mg Tab) 40 mg PO QAM JAYESH Stop: 05/03/21 08:59 Last Admin: 04/09/21 10:29 Dose: 40 mg Documented by: Sodium Chloride (Sodium Chloride 0.65% Na Soln 45 Ml ([place])) 1 - 2 sprays NA PRN PRN PRN Reason: Nasal Dryness/Congestion Stop: 05/02/21 19:01 Trazodone HCl (Trazodone Hcl 100 Mg Tab) 100 mg PO HS JAYESH Stop: 05/02/21 21:59 Last Admin: 04/08/21 21:28 Dose: 100 mg Documented by: Mental Health & Subst Abuse Tx Psychiatrist Name of Psychiatrist: Shar Guzman Psychiatrist's Date of Appointment with Psychiatrist: 04/14/21 Time of Appointment with Psychiatrist: 2:00 pm Psychiatric Appointment Comment: Behzad barton Therapist Name of Therapist: Genna: Dr. Adams Therapist's Date of Therapist Appointment: 04/12/21 Time of Therapist Appointment: 10:00 AM Therapy Appointment Comment: Behzad barton Materials Handling Equipment Operator Name of Materials Handling Equipment Operator: [employer] Phone Number for Materials Handling Equipment Operator: [phone] Case Management Appointment Comment: Materials Handling Equipment Operator will call you to set up an appointment. Post Discharge Appointments Primary Care Physician Name Of Family Doctor: [facility] Care Provider Appointment Comment: As needed Sap Senior Developer Phone Number of Sap Senior Developer: Sap Senior Developer Appointment Comment: available as a resource Contact Information Discharge Discharge Address: [address] [place] [address],[place] [address]
[2021-04-09] MEDS ORDERED: NICOTINE POLACRILEX 2 MG GUM MT PRN (12:17)
[2021-04-09] MEDS: hydrOXYzine HCl 25 MG TAB PO PRN ×2 (12:26→22:08)
[2021-04-09] MEDS: NICOTINE POLACRILEX 2 MG GUM MT PRN ×2 (15:04→18:36)
[2021-04-09] MEDS: traZODone HCL 100 MG TAB PO SCH (21:36)
[2021-04-10] MEDS: buPROPion SR 100 MG TABCR PO SCH (09:50)
[2021-04-10] MEDS: PANTOprazole 40 MG TAB PO SCH (09:50)
[2021-04-10] MEDS: ESCITALOPRAM OXALATE 20 MG TAB PO SCH (09:50)
[2021-04-10] MEDS: NICOTINE POLACRILEX 2 MG GUM MT PRN ×2 (10:10→18:59)
[2021-04-10] MEDS: hydrOXYzine HCl 25 MG TAB PO PRN ×2 (12:12→21:28)
--- NOTE | 2021-04-10 14:02 | Psychiatric Progress Note ---
Date of Service April 10, 2021 Impression / Recommendations Impression Patient is a 21-year-old female who is presenting following suicidal ideation with plan. Patient has a history of depression and treatment with medications. Although she was compliant with her medications, she was still suffering from her symptoms. She will benefit from inpatient hospitalization for purposes of safety, stabilization, medication management. (1) Mood disorder: The patient was admitted to the [facility] ([facility] mental health unit) on every 15 minute checks (behavioral with suicide precautions for safety. The patient will participate in group, recreational, and milieu therapies and will be offered additional individual and family sessions as clinically appropriate. 04/10/2021--patient is improving, able to handle difficult conversation today 04/09/2021ischarge hold as patient reported a panic attack and crying spells last night. Mood still seems labile, will continue with therapy for now and reassess discharge in several days time. 04/08/2021atient reporting mood is improved. Anticipating discharge this weekend. 04/07/2021atient making incremental progress 04/06/21--patient's mood seems to be improving although today was a difficult day and patient was still endorsing some suicidal thoughts. Patient is interacting appropriate with peers and seems to be benefiting by the unit. 04/05/2021atient continues to do well on the unit. Seems to be improving her mood. 04/04/2021atient is making incremental progress. No changes to the regimen as of now. 04/03/2021iagnosis is likely MDD, will plan to increase Lexapro to 20 mg p.o. every morning, continue trazodone 100 mg p.o. nightly, continue Wellbutrin 200 mg p.o. every morning, Risk Factors Assessment Male: No : No Do You Have Access To A Gun?: No Health Problems: No Mental Health Diagnoses: Yes Substance Use Disorders: No Previous Attempt: Yes Previous Attempt; Didn't Tell Anyone: Yes Family History of Suicide: No Previous Psychiatric Hospitalization: No Hopelessness: Yes Smoker: Yes Protective Factors Assessment : No Responsible for Young Children: No Employed: No Stable Relationships: Yes Supportive Family: Yes Good Rapport with Provider: Yes Interval History Chief Complaint "It was a tough conversation". Review of Systems Sleep Information Total Hours of Sleep: 6.5 Meal Information Percent Meal Consumed - Breakfast: 0 Percent Meal Consumed - Lunch: 75 Percent Meal Consumed - Dinner: 100 Nutrition Comment: nausea/vomiting and poor appetite Subjective Subjective Patient seen, chart reviewed and case discussed with treatment team, nursing and social work. Patient reports a good night of sleep and decent appetite. No side effects reported or observed. Regarding mood, patient reports some improvement which they attribute to the medications as well as the therapy they have received on the unit. Patient had a difficult conversation with her girlfriend Carmen. Was able to tolerate conversation alongside social sciences professor. I spent 30 minutes with the patient, 50% of which was dedicated to counselling and coordination of care. Physical Exam Psychiatric Orientation: alert and oriented x 3 Apperance: appropriately groomed Eye Contact: + fair eye contact Motor Behavior: no abnormal motor movements Speech: normal rate/rhythm/volume of speech Affect: + depressed affect and + tearful affect Mood: + depressed mood and + dysphoric mood Thought Process: linear/logical thought process Thought Content: reality based without delusions Suicidal Thoughts: + reports suicidal thoughts Homicidal Thoughts: denies homicidal thoughts Hallucinations: no auditory hallucinations and no gustatory hallucinations Cognition: remote memory grossly intact Estimated Intelligence: consistent with education level Insight: + fair insight Judgement: + poor judgement Vital Signs (Past 24 Hours) Last Vital Signs Temp 36.7 C 04/10/21 06:51 Pulse 105 H 04/10/21 06:52 Resp 16 04/10/21 06:51 BP 114/70 04/10/21 06:52 Pulse Ox 100 04/02/21 21:46 Results & Data ([facility]) Current Inpatient Medications Current Inpatient Medications: Current Inpatient Medications Acetaminophen (Acetaminophen 325 Mg Tab) 650 mg PO Q4H PRN PRN Reason: Headache or Minor Fever Stop: 05/02/21 19:01 Al Hydrox/Mg Hydrox/Simethicone (Aluminum/Magnesium Susp 30 Ml Udc) 30 ml PO Q4H PRN PRN Reason: GI Upset Stop: 05/02/21 19:01 Bismuth Subsalicylate (Bismuth Subsalicylate Liqd 236 Ml) 15 ml PO PRN PRN PRN Reason: Loose Stool Stop: 05/02/21 19:01 Bupropion HCl (Bupropion Sr 100 Mg Tabcr) 200 mg PO QAM JAYESH Stop: 05/03/21 08:59 Last Admin: 04/10/21 09:50 Dose: 200 mg Documented by: Escitalopram Oxalate (Escitalopram Oxalate 20 Mg Tab) 20 mg PO QAM JAYESH Stop: 05/04/21 08:59 Last Admin: 04/10/21 09:50 Dose: 20 mg Documented by: Hydroxyzine HCl (Hydroxyzine Hcl 25 Mg Tab) 50 mg PO HSZ PRN PRN Reason: Insomnia Stop: 05/02/21 19:01 Last Admin: 04/09/21 22:08 Dose: 50 mg Documented by: Hydroxyzine HCl (Hydroxyzine Hcl 25 Mg Tab) 25 mg PO Q4H PRN PRN Reason: Anxiety Stop: 05/02/21 19:01 Last Admin: 04/10/21 12:12 Dose: 25 mg Documented by: Magnesium Hydroxide (Magnesium Hydroxide Susp 30 Ml Udc) 30 ml PO DAILY PRN PRN Reason: Constipation Stop: 05/02/21 19:01 Nicotine Polacrilex (Nicotine Polacrilex 2 Mg Gum) 1 piece MT Q2HWA PRN PRN Reason: cravings Stop: 05/09/21 13:59 Last Admin: 04/10/21 10:10 Dose: 1 piece Documented by: Pantoprazole Sodium (Pantoprazole 40 Mg Tab) 40 mg PO QAM JAYESH Stop: 05/03/21 08:59 Last Admin: 04/10/21 09:50 Dose: 40 mg Documented by: Sodium Chloride (Sodium Chloride 0.65% Na Soln 45 Ml ([place])) 1 - 2 sprays NA PRN PRN PRN Reason: Nasal Dryness/Congestion Stop: 05/02/21 19:01 Trazodone HCl (Trazodone Hcl 100 Mg Tab) 100 mg PO HS JAYESH Stop: 05/02/21 21:59 Last Admin: 04/09/21 21:36 Dose: 100 mg Documented by: Mental Health & Subst Abuse Tx Psychiatrist Name of Psychiatrist: Shar Guzman Psychiatrist's Date of Appointment with Psychiatrist: 04/14/21 Time of Appointment with Psychiatrist: 2:00 pm Psychiatric Appointment Comment: Behzad barton Therapist Name of Therapist: Genna: Dr. Adams Therapist's Date of Therapist Appointment: 04/12/21 Time of Therapist Appointment: 10:00 AM Therapy Appointment Comment: Behzad barton Pharmaceutical Scientist Name of Pharmaceutical Scientist: [employer] Phone Number for Pharmaceutical Scientist: [phone] Case Management Appointment Comment: Pharmaceutical Scientist will call you to set up an appointment. Post Discharge Appointments Primary Care Physician Name Of Family Doctor: [facility] Primary Care Provider Appointment Comment: As needed Case Advocate Phone Number of Case Advocate: Case Advocate Appointment Comment: available as a resource Contact Information Discharge Discharge Address: [address] [place] [address],[place] [address]
[2021-04-10] MEDS: traZODone HCL 100 MG TAB PO SCH (21:28)
[2021-04-11] MEDS: PANTOprazole 40 MG TAB PO SCH (10:03)
[2021-04-11] MEDS: buPROPion SR 100 MG TABCR PO SCH (10:03)
[2021-04-11] MEDS: ESCITALOPRAM OXALATE 20 MG TAB PO SCH (10:03)
[2021-04-11] MEDS: hydrOXYzine HCl 25 MG TAB PO PRN (10:03)
[2021-04-11] MEDS: NICOTINE POLACRILEX 2 MG GUM MT PRN (11:27)
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
== END 2021-04-11 11:57 | disposition home or self-care (01) | DRG 881 ==
LOC: ED 13:25 → 3S 18:58